=== PATIENT | male | born 1985 | race Caucasian/White ===

== ENCOUNTER 2018-04-03 17:10 | Emergency (ER) | payer OTHER, SELFPAY ==
[2018-04-03 17:16] VITALS: BP 154/88; PULSE 98; RESP 20; TEMP 36.7; O2SAT 98
--- NOTE | 2018-04-03 18:57 | ED.SKABFB ---
HPI - Skin/Abscess/Foreign Bdy <AUSTIN Kruger - Last Filed: 04/03/18 21:47> General Chief complaint: Skin/Abscess/Foreign Body Stated complaint: Cut on face Time Seen by Provider: 04/03/18 18:23 Source: patient Mode of arrival: ambulatory Limitations: no limitations History of Present Illness HPI narrative: 32-year-old healthy male that is a nonsmoker for complain laceration to his left eyebrow area. He states that earlier today attempt PEG slipped came back on him and connected in the facial area. He denies any loss of consciousness. No nausea vomiting. Injury is limited to the left eyebrow area. He reports that his tetanus is up-to-date. No other concerns or complaints at this timeframe. He denies any vision changes. Related Data Allergies Allergy/AdvReac Type Severity Reaction Status Date / Time No Known Drug Allergies Allergy Verified 04/03/18 17:16 Review of Systems <AUSTIN Kruger - Last Filed: 04/03/18 21:47> Constitutional Denies chills, Denies fever(s), Denies lethargy and Denies weakness Eyes Denies change in vision, Denies eye discharge, Denies irritation and Denies loss of vision ENT Comments: Laceration left eyebrow area Cardiovascular Denies chest pain, Denies irregular heart rhythm, Denies lightheadedness, Denies palpitations, Denies dyspnea, Denies dyspnea on exertion and Denies orthopnea Respiratory Denies cough, Denies dyspnea, Denies dyspnea on exertion and Denies wheezing Genitourinary Denies hematuria, Denies flank pain, Denies urinary incontinence and Denies urinary urgency Musculoskeletal Denies back pain, Denies muscle weakness, Denies numbness and Denies tingling Integumentary/Breasts Denies pruritus, Denies erythema, Denies rash and Denies wounds Neurologic Denies confusion, Denies loss of vision, Denies numbness, Denies tingling and Denies weakness Psychiatric Denies anxiety, Denies confusion, Denies depression, Denies homicidal ideation and Denies suicidal ideation Endocrine Denies palpitations Hematologic/Lymphatic Denies easy bruising Allergic/Immunologic Denies wheezing PFSH <AUSTIN Kruger - Last Filed: 04/03/18 21:47> Social History Smoking Status: Never smoker Social History Smoking Status: Never smoker Exam <AUSTIN Kruger - Last Filed: 04/03/18 21:47> Initial Vital Signs Initial Vital Signs: Vital Signs Temperature 98.1 F 04/03/18 17:16 Pulse Rate 98 H 04/03/18 17:16 Respiratory Rate 20 04/03/18 17:16 Blood Pressure 154/88 H 04/03/18 17:16 Pulse Oximetry 98 04/03/18 17:16 Const General: cooperative and well developed Nutritional Appearance: well nourished Orientation: alert, awake, oriented x3 and not confused HENMT Face and sinus: other ( 2 cm laceration to left medial eyebrow area.) Mouth: oral mucosae normal and moist mucous membranes Eyes Conjunctivae: conjunctivae normal Sclera: sclerae normal Pupils: PERRL EOM: EOM intact bilaterally Cardio Rate: regular rate Rhythm: regular rhythm Heart Sounds: no click, no gallops, no murmurs and no rubs Pulses: normal peripheral pulses Skin General: no rashes or lesions noted, No jaundice and No petechiae Neuro General: alert, oriented x3, gait normal and no focal motor deficits Speech: speech normal <Mikaela Cabrera DO - Last Filed: 04/04/18 04:08> Initial Vital Signs Initial Vital Signs: Vital Signs Temperature 98.1 F 04/03/18 17:16 Pulse Rate 98 H 04/03/18 17:16 Respiratory Rate 20 04/03/18 17:16 Blood Pressure 154/88 H 04/03/18 17:16 Pulse Oximetry 98 04/03/18 17:16 Procedures <AUSTIN Kruger - Last Filed: 04/03/18 21:47> Laceration Repair Laceration 1: Site: face Size (cm): 2.5 Description: irregular Depth: simple, single layer Local Anesthetic: lidocaine 1% and with epi Amount of anesthesia used (mL): 2 Pre-repair: wound explored and irrigated extensively Skin layer closed with: nylon Size (cm): 5-0 Number of sutures: 7 Technique: simple, interrupted Course <AUSTIN Kruger - Last Filed: 04/03/18 21:47> Vital Signs - 8 hr 04/03/18 17:16 Temperature 98.1 F Pulse Rate 98 H Respiratory Rate 20 Blood Pressure 154/88 H Pulse Oximetry 98 <Mikaela Cabrera DO - Last Filed: 04/04/18 04:08> Vital Signs - 8 hr 04/03/18 17:16 Temperature 98.1 F Pulse Rate 98 H Respiratory Rate 20 Blood Pressure 154/88 H Pulse Oximetry 98 MDM - Skin/Abscess/Foreign Bdy <AUSTIN Kruger - Last Filed: 04/03/18 21:47> MDM Narrative Medical decision making narrative: Laceration to the left eyebrow area was closed with 7 sutures. Sutures removed in 5-7 days. Dress wound daily with bacitracin until healed. [id number] Tylenol Motrin as needed for any discomfort. Follow up with primary care provider. Return emergency room for any worsening symptoms. Discharge Plan Departure Patient Disposition: Home Clinical Impression: Laceration of face Qualifiers: Encounter type: initial encounter Qualified Code(s): S01.81XA - Laceration without foreign body of other part of head, initial encounter Discharge Date/Time: 04/03/18 19:57 Interventions: ED Discharge Assessment Last Done: 04/03/18 19:56 Instructions: DI for Laceration Repair Activity Restrictions/Additional Instructions: laceration of face was closed with 7 sutures. Sutures removed in 5-7 days. Dress wound daily with bacitracin and dressing until healed. Use [id number] Tylenol or Motrin as needed for any discomfort. Follow up with her primary care provider. Return emergency room for any worsening symptoms or for signs of infection. Referrals: [facility] [Provider Group] <Mikaela Cabrera DO - Last Filed: 04/04/18 04:08> Cosign ED Attending Cosignature Attestation: I was immediately available in the department for consultation. This documentation has been reviewed and I agree with assessment and plan. Supervised by Mikaela Cabrera DO
== END 2018-04-03 19:57 | disposition home or self-care (01) ==
PROVIDERS: Emergency Provider Nurse Practitioner Family
DX: S01.112A Laceration without foreign body of left eyelid and periocular area, initial encounter (principal); W22.8XXA Striking against or struck by other objects, initial encounter
CPT/HCPCS: 12011; 99283

== ENCOUNTER → 2019-03-25 12:24 | Outpatient (CLI) | payer OTHER, SELFPAY ==
--- NOTE | 2019-03-25 | DI.RAD.S_ITS ---
PROCEDURE: XR HAND RT MIN 3V INDICATIONS: NECK,R SHOULDER R HAND PAIN TECHNIQUE: 3 views of the hand(s) acquired. COMPARISON: [facility], , HAND 3V RIGHT, 08/05/2008, 12:27. FINDINGS: Bones: No acute fractures or dislocations. Chronic fracture deformity of the base of the fifth metacarpal Carpal bones are normally aligned. No suspicious bony lesions. Chronic appearing ossicle projecting just to the base of the fifth metacarpal. No definite marginal lucencies identified. The joint spaces appear grossly preserved. Soft tissues: No suspicious soft tissue calcifications. IMPRESSION: No acute abnormality identified. Chronic deformity from fifth metacarpal base fracture. Incidentally noted ossicle/fracture fragment projecting adjacent the base of the fifth metacarpal. Dictated by: Yvan Jones M.D. on 03/25/2019 at 17:02 Approved by: Yvan Jones M.D. on 03/25/2019 at 17:09
--- NOTE | 2019-03-25 | DI.RAD.S_ITS ---
PROCEDURE: XR CERVICAL SPINE 2V OR 3V INDICATIONS: NECK,R SHOULDER R HAND PAIN TECHNIQUE: 3 view(s) of the cervical spine were acquired. COMPARISON: None. FINDINGS: Bones: No fractures or dislocations to the C7 level. The lateral masses of C1 appear intact on the odontoid view. No suspicious bony lesions. The disc spaces appear grossly preserved. Levocurvature noted Soft tissues: No prevertebral soft tissue swelling. IMPRESSION: Levocurvature otherwise unremarkable examination as above Dictated by: Yvan Jones M.D. on 03/25/2019 at 17:11 Approved by: Yvan Jones M.D. on 03/25/2019 at 17:11
--- NOTE | 2019-03-25 | DI.RAD.S_ITS ---
PROCEDURE: XR SHOULDER RT MIN 2V INDICATIONS: NECK,R SHOULDER R HAND PAIN TECHNIQUE: 3 views of the shoulder were acquired. COMPARISON: None. FINDINGS: Bones: No fractures or dislocations. No suspicious bony lesions. Visualized ribs appear intact. Soft tissues: No suspicious soft tissue calcifications. IMPRESSION: Unremarkable examination as above. If the patient's pain or other symptoms persist, consider further evaluation with MRI Dictated by: Yvan Jones M.D. on 03/25/2019 at 17:01 Approved by: Yvan Jones M.D. on 03/25/2019 at 17:02
== END ==
PROVIDERS: Referring Provider Family Medicine; Visit Provider Family Medicine
DX: M54.2 Cervicalgia (principal); M79.641 Pain in right hand; M25.511 Pain in right shoulder; S62.316A Displaced fracture of base of fifth metacarpal bone, right hand, initial encounter for closed fracture; S19.9XXA Unspecified injury of neck, initial encounter; S49.91XA Unspecified injury of right shoulder and upper arm, initial encounter; X58.XXXA Exposure to other specified factors, initial encounter
CPT/HCPCS: 72040; 73030; 73130

== ENCOUNTER → 2019-04-21 11:15 | Outpatient (CLI) | payer OTHER, SELFPAY ==
--- NOTE | 2019-04-21 | DI.RAD.S_ITS ---
PROCEDURE: FL SHOULDER INJECTION MR/CT RT INDICATIONS: Right shoulder pain TECHNIQUE: The indications, alternatives, benefits, risks, and complications of the procedure were explained to the patient. Written informed consent was obtained and placed in the chart. The shoulder was examined fluoroscopically and a site for needle placement chosen for entry into the glenohumeral joint from an anterior approach. The skin was prepped and draped in a sterile fashion, and 1% lidocaine infiltrated from skin down to joint capsule. A spinal needle was inserted into the glenohumeral joint, and a small amount of iodinated contrast media injected to confirm intra-articular placement of the needle tip. This was followed by approximately 12 mL dilute solution of a gadolinium containing MR contrast agent. The needle was removed and a dressing was applied. The patient was given postprocedural instructions and sent to the MR suite for MR imaging. FINDINGS: A single fluoroscopic spot image demonstrates intra-articular location of injected iodinated contrast. IMPRESSION: Successful fluoroscopically guided administration of dilute Gadolinium solution into the shoulder joint for MR arthrogram. Dictated by: Yvan Jones M.D. on 04/21/2019 at 17:01 Approved by: Yvan Jones M.D. on 04/21/2019 at 17:01
--- NOTE | 2019-04-21 | DI.MRI.S_ITS ---
PROCEDURE: MR SHOULDER RT W CON INDICATIONS: Right shoulder pain TECHNIQUE: After the administration of 12 mL of dilute intra-articular Gadolinium contrast, oblique coronal T1 and T2 spin echo with fat saturation, oblique sagittal T1 spin echo with and without fat saturation, oblique sagittal T2 fast spin echo with fat saturation, axial T1 spin echo with fat saturation through the shoulder. COMPARISON: [facility], CR, XR SHOULDER RT MIN 2V, 03/25/2019, 12:29. FINDINGS: Image quality: Excellent. Rotator cuff: Supraspinatus tendinopathy with low-grade bursal and articular surface fraying at the critical zone. Mild infraspinatus tendinopathy. Teres minor tendons appear intact. Subscapularis tendon appears intact. No atrophy of the rotator cuff muscles. Bones and bursae: Large multiloculated cystic-appearing focus present involving the suprascapular notch as well as the spinal glenoid notch. This measures approximately 3.1 cm in the cephalocaudad dimension and approximately 1.0 x 2.3 cm on axial image 10/6. No bone marrow contusions or fractures. Mild acromioclavicular joint degeneration. Acromion demonstrates conventional anatomy, without an os acromiale. No subacromial-subdeltoid bursitis. Capsule and soft tissues: Labrum: Subtle superior labral intrasubstance signal changes for example image 13/8, image 14/8. There is a possible 1 mm paralabral cyst image 15/8. This suggests a type III SLAP tear. Amorphous signal change present within the posterior labrum raising possibility of subtle chronic tear however no intrasubstance gadolinium signal intensity. Long head of the biceps tendon intact. The rotator interval appears normal, without fibrosis. Coracohumeral ligament intact. IMPRESSION: Supraspinatus tendinopathy with low-grade bursal and articular surface fraying of the critical zone. Mild infraspinatus tendinopathy Type III SLAP tear, which may be subacute/chronic. Additionally, chronic appearing subtle posterior labral tear versus degeneration. Multiloculated cystic-appearing lesion, presumed ganglion cyst, involving the suprascapular and spinoglenoid notch. Minimal edema within the infraspinatus and teres minor muscles raising possibility of very early/subtle denervation however no definite atrophy is seen. Dictated by: Yvan Jones M.D. on 04/21/2019 at 14:14 Approved by: Yvan Jones M.D. on 04/21/2019 at 14:38
== END ==
PROVIDERS: PCP Family Medicine; Referring Provider Family Medicine; Visit Provider Family Medicine
DX: M25.511 Pain in right shoulder (principal); S43.431A Superior glenoid labrum lesion of right shoulder, initial encounter; M25.811 Other specified joint disorders, right shoulder; M19.011 Primary osteoarthritis, right shoulder
CPT/HCPCS: 23350; 73222; 77002

== ENCOUNTER → 2019-10-29 08:01 | Outpatient (CLI) | payer OTHER, SELFPAY ==
--- NOTE | 2019-10-29 | DI.MRI.S_ITS ---
PROCEDURE: MR SHOULDER RT WO CON INDICATIONS: Pain in right shoulder TECHNIQUE: Noncontrast oblique coronal T2 fast spin echo with fat saturation, oblique sagittal T1 spin echo and T2 fast spin echo with fat saturation, axial T1 spin echo and T2 fast spin echo with fat saturation through the shoulder. COMPARISON: None. FINDINGS: Image quality: Excellent. Rotator cuff: Supraspinatus tendinopathy with low-grade partial thickness articular and bursal sided tear at the junction of the critical zone and footprint. Infraspinatus and teres minor tendons appear intact. Subscapularis tendon appears intact. No atrophy of the rotator cuff muscles however mild fatty infiltration of the infraspinatus and supraspinatus tendons. Bones and bursae: No bone marrow contusions or fractures. Mild acromioclavicular joint degeneration. Acromion demonstrates conventional anatomy, without an os acromiale. Mild subacromial-subdeltoid bursitis. Capsule and soft tissues: Labrum: Large cystic structure seen at the spinoglenoid notch measuring approximately 2.0 x 1.2 cm on axial image 13/6 and 3.0 cm in the cephalocaudal dimension on sagittal image 25/10 Ill-defined amorphous degeneration of the posterior segment of the labrum. Incidental sublabral foramen. Ill-defined superior labral fraying. Long head of the biceps tendon intact. The rotator interval appears normal, without fibrosis. Coracohumeral ligament intact. IMPRESSION: Supraspinatus tendinopathy with low-grade partial thickness articular and bursal sided tear Mild subacromial-subdeltoid bursitis Ill-defined tear versus advanced degeneration of the posterior segment of the labrum. Large multiloculated appearing cystic structure at the spinoglenoid notch, presumably paralabral cyst. No definite muscle atrophy although very minimal edema seen in the infraspinatus muscle raising possibility of early suprascapular nerve impingement, however technically nonspecific Dictated by: Yvan Jones M.D. on 10/29/2019 at 9:44 Approved by: Yvan Jones M.D. on 10/29/2019 at 9:56
== END ==
PROVIDERS: PCP Family Medicine; Referring Provider Family Medicine; Visit Provider Orthopaedic Surgery Sports Medicine
DX: M25.511 Pain in right shoulder (principal); M75.111 Incomplete rotator cuff tear or rupture of right shoulder, not specified as traumatic; M75.51 Bursitis of right shoulder
CPT/HCPCS: 73221

== ENCOUNTER → 2019-11-19 14:46 | Outpatient (CLI) | payer OTHER, SELFPAY | PROVIDERS: PCP Family Medicine; Referring Provider Orthopaedic Surgery Sports Medicine; Visit Provider Orthopaedic Surgery Sports Medicine | DX: M25.511 Pain in right shoulder (principal) | CPT/HCPCS: 95886; 95911 ==

== ENCOUNTER → 2020-11-16 17:32 | Outpatient (ROUT) | payer OTHER, SELFPAY ==
[2020-11-16 18:08] LABS: COVID19 -Nasal RAPID Negative (Negative)
== END ==
PROVIDERS: PCP Family Medicine; Visit Provider Family Medicine
DX: Z20.822 Contact with and (suspected) exposure to COVID-19 (principal)
CPT/HCPCS: 87635

== ENCOUNTER → 2023-11-06 15:03 | Outpatient (CLI) | payer OTHER, SELFPAY ==
--- NOTE | 2023-11-06 15:04 | DI.US.S_ITS ---
PROCEDURE: US SCROTUM INDICATIONS: LEFT TESTICLE PAIN,MASS TECHNIQUE: Real-time scanning was performed of the scrotum and testicles, with image documentation. Color and pulse Doppler interrogation was performed of both testicles. COMPARISON: None. FINDINGS: Right: Testicle is normal in size at 4.8 x 3.2 x 2.5 cm, and homogenous in echotexture. Epididymis is normal in overall size and morphology. No hydrocele or varicoceles. Overlying scrotal skin is normal in thickness. Left: Testicle is normal in size at 4.8 x 2.9 x 2.1 cm, and homogeneous in echotexture. Epididymis head is not well seen, otherwise is normal in overall size and morphology. Large complex hydrocele with septations measuring 8.3 x 3.1 x 6.0 centimeters. Small varicoceles.. Overlying scrotal skin is normal in thickness. Doppler: Color and pulse Doppler demonstrate normal and symmetric arterial flow in both testicles. No inguinal hernias. IMPRESSION: 1. Complex left hydrocele with septations measuring up to 8.3 centimeters. 2. Left epididymal head is not well seen secondary to large hydrocele. Otherwise, the testes and epididymides are normal in appearance. 3. Small left varicocele. Dictated by: Bryant Hare M.D. on 11/07/2023 at 11:54 Approved by: Bryant Hare M.D. on 11/07/2023 at 11:55
== END ==
PROVIDERS: Referring Provider Family Medicine; Visit Provider Family Medicine
DX: N43.3 Hydrocele, unspecified (principal); I86.1 Scrotal varices; N50.812 Left testicular pain
CPT/HCPCS: 76870

== ENCOUNTER → 2024-03-18 15:41 | Outpatient (CLI) | payer OTHER, SELFPAY ==
--- NOTE | 2024-03-18 16:00 | DI.MRI.S_ITS ---
PROCEDURE: MR SHOULDER RT WO CON INDICATIONS: Shoulder pain. TECHNIQUE: Noncontrast oblique coronal T2 fast spin echo with fat saturation, oblique sagittal T1 spin echo and T2 fast spin echo with fat saturation, axial T1 spin echo and T2 fast spin echo with fat saturation through the shoulder. COMPARISON: [facility], MR, MR SHOULDER RT WO CON, 10/29/2019, 8:27. FINDINGS: Image quality: Excellent. Rotator cuff: Low-grade bursal surface partial-thickness tear involving distal supraspinatus at its insertion on the humeral head is seen extending to musculotendinous junction. Distal infraspinatus and subscapularis tendinosis is seen. No full-thickness rotator cuff tendon rupture. Sagittal images demonstrate no significant rotator cuff muscle atrophy. Bones and bursae: No bone marrow contusions or fractures. Mild acromioclavicular joint osteoarthritic changes are seen with joint space narrowing and downward osteophyte formation depressing the musculotendinous junction of supraspinatus. Type 1 acromion without an os acromiale. Small amount of subacromial subdeltoid bursal fluid is seen, no loose bodies. Capsule and soft tissues: Fraying of superior anterior glenoid labrum with subtle T2 hyperintense signal is seen concerning for subtle superior anterior glenoid labral tear. The long head of the biceps tendon demonstrates normal location and morphology. The rotator interval appears normal, without fibrosis. The coracohumeral ligament is normal in thickness. IMPRESSION: 1. Low-grade bursal surface partial-thickness tear involving distal supraspinatus extending to musculotendinous junction. Distal infraspinatus and subscapularis tendinosis. No full-thickness rotator cuff tendon rupture. 2. Mild acromioclavicular joint osteoarthritis. No marrow edema. No fracture or dislocation. Small amount of joint fluid and subacromial subdeltoid bursal fluid, no gross loose bodies. 3. Suggestion of subtle superior anterior right glenoid labral tear. Dictated by: Quang Sweeney M.D. on 03/19/2024 at 9:12 Approved by: Quang Sweeney M.D. on 03/19/2024 at 9:24
== END ==
LOC: MRI 15:42
PROVIDERS: Referring Provider Family Medicine; Visit Provider Family Medicine
DX: S40.011A Contusion of right shoulder, initial encounter (principal); S46.011A Strain of muscle(s) and tendon(s) of the rotator cuff of right shoulder, initial encounter; M19.011 Primary osteoarthritis, right shoulder; X58.XXXA Exposure to other specified factors, initial encounter
CPT/HCPCS: 73221